=== PATIENT | female | born 1980 | race Caucasian/White ===

== ENCOUNTER 2016-09-13 08:21 | Emergency (ER) | payer MEDICAID, OTHER ==
[2016-09-13 08:21] VITALS: BMI 36.1
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
--- NOTE | 2016-09-13 10:11 | CT ---
CT chest without IV contrast Indication: Fall Technique: Contiguous axial images were obtained through the chest without intravenous contrast enhancement. Sagittal and coronal reconstructions were generated and reviewed. Radiation dose (DLP): 424.65 MGy-cm. Comparison: None available. Findings: Visualized portions of the inferior thyroid gland appear unremarkable. The mediastinal and hilar vascular structures appear within normal limits. The heart appears within normal limits of size. There is no focal consolidation, significant pleural effusion, or definite pneumothorax evident. No suspicious pulmonary nodules measuring greater than 5 mm. Small hiatal hernia. Limited visualization of the noncontrast upper abdomen appears grossly unremarkable. Mild loss of height of the T8 vertebral body, compression fracture. Impression: T8 compression fracture deformity with mild loss of vertebral body height. Recommend further evaluation with MRI thoracic spine.
[2016-09-13 12:31] VITALS: TEMP 98.9
--- NOTE | 2016-09-13 12:53 | MRI ---
PROCEDURE: MR THORACIC SPINE WITHOUT CONTRAST HISTORY: fall, compression fx of the T 8 COMPARISON: Comparison is made to the previous CT dated 09/13/2016 TECHNIQUE: Multiecho multiplanar sequences were performed through the thoracic spine without the use of intravenous contrast. FINDINGS: ALIGNMENT: Normal thoracic spinal alignment. Normal thoracic kyphosis. VERTEBRA: Again seen is mild compression deformity at the superior endplate of T8 vertebral body which demonstrate mild hypointense T1 and hyperintense T2 signal. No evidence of bony retropulsion. No evidence of other compression deformity in the thoracic spine. MARROW: Marrow signal unremarkable. PARASPINAL SOFT TISSUES: Unremarkable. CORD: Unremarkable thoracic cord. No volume loss, signal abnormality or syrinx. DISCS: No disc herniation, spinal canal stenosis, or neuroforaminal narrowing. OTHER FINDINGS: None. IMPRESSION: Mild compression deformity at the superior endplate of T8 again noted associated with mild hypointense T1 and slight hyperintense T2 signal. No evidence of spinal or neural foraminal narrowing. No evidence of other acute or subacute fracture.
[2016-09-13 14:37] VITALS: BP 131/80; PULSE 78; RESP 16
[2016-09-13 18:24] VITALS: O2SAT 99
== END 2016-09-13 14:58 | disposition home or self-care (01) ==
LOC: C.ER 08:21
DX: S22.069A Unspecified fracture of T7-T8 vertebra, initial encounter for closed fracture (principal); W00.1XXA Fall from stairs and steps due to ice and snow, initial encounter; Y92.59 Other trade areas as the place of occurrence of the external cause

== ENCOUNTER 2018-07-14 09:46 | Outpatient (CLI) | payer SELFPAY | END 2018-07-14 09:47 | disposition home or self-care (01) | LOC: C.USIC 09:46 ==

== ENCOUNTER 2018-07-20 21:33 | Emergency (ER) | payer SELFPAY ==
[2018-07-20 21:33] VITALS: BMI 30.5
[2018-07-20] MEDS ORDERED: Sodium Chloride 0.9% 1,000 ML IV ONE (21:48)
[2018-07-20 22:15] LABS: BASO # 0.1 K/uL (0.0-0.2); BASO % 0.7 % (0.0-2.0); EOS # 0.1 K/uL (0.0-0.7); EOS % 0.6 % (0.0-4.0); HEMOGLOBIN 13.1 g/dL (11.0-16.0); LYMPH % 29.8 % (20.0-40.0); MEAN CORPUSCULAR HEMOGLOBIN 29.2 pg (27.0-31.0); MEAN CORPUSCULAR HGB CONC 33.2 g/dL (33.0-37.0); MEAN PLATELET VOLUME 7.9 fL (7.2-11.7); MONO # 0.7 K/uL (0.0-0.8); MONO % 7.1 % (0.0-10.0); NEUT # 6.3 K/uL (1.8-7.0); NEUT % 61.8 % (50.0-75.0); NRBC % 0.1 % (0.0-2.0); RBC 4.49 Mil/uL (3.80-5.20); RED CELL DISTRIBUTION WIDTH 12.8 % (11.5-14.5); WHITE BLOOD COUNT 10.1 K/uL (4.8-10.8)
[2018-07-20 22:17] LABS: MEAN CELL VOLUME 87.9 fL (81.0-99.0)
[2018-07-20 22:31] LABS: ALB/GLOB RATIO 1.4 (1.0-2.1); ALBUMIN 4.5 g/dL (3.5-5.0); BLOOD UREA NITROGEN 11 mg/dL (7-17); CALCIUM 8.9 mg/dl (8.6-10.4); GFR NON-AFRICAN AMERICAN > 60
[2018-07-20 22:32] LABS: ALT/SGPT 22 U/L (9-52); AST/SGOT 28 U/L (14-36)
--- NOTE | 2018-07-20 23:58 | C.PDOC ---
History Of Present Illness 37 year old female presents to the ER with a complaint of vaginal bleeding described as spotting since this morning. Patient is , currently 10 weeks . Denies pelvic pain, nausea, vomiting, or dysuria. Patient's PIT LABORER is DR. Mccurdy. Time Seen by Provider: 07/20/18 21:41 Chief Complaint (Nursing): Female Genitourinary History Per: Patient History/Exam Limitations: no limitations Onset/Duration Of Symptoms: Hrs Current Symptoms Are (Timing): Still Present Quality Of Discomfort: Unable To Describe Associated Symptoms: denies: Nausea, Vomiting, Other (Pelvic pain. Dysuria.) Exacerbating Factors: None Alleviating Factors: None Recent travel outside of the [place]: No Abnormal Vaginal Bleeding: Yes Past Medical History Reviewed: Historical Data, Nursing Documentation, Vital Signs Vital Signs: Last Vital Signs Temp 98.7 F 07/20/18 21:36 Pulse 88 07/20/18 21:36 Resp 16 07/20/18 21:36 BP 147/86 07/20/18 21:36 Pulse Ox 97 07/20/18 21:36 - [facility] Procedures EXTRACTION OF POC, LOW CERVICAL, OPEN APPROACH (02/20/16) INJECT/INFUSE NEC (10/10/14) Family History: States: Unknown Family Hx - Social History Hx Tobacco Use: No Hx Alcohol Use: No Hx Substance Use: No - Immunization History Hx Tetanus Toxoid Vaccination: No Hx Influenza Vaccination: No Hx Pneumococcal Vaccination: No Review Of Systems Except As Marked, All Systems Reviewed And Found Negative. Genitourinary: Positive for: Vaginal Bleeding Physical Exam - Physical Exam Appears: Non-toxic, No Acute Distress Skin: Normal Color, Warm, Dry Head: Atraumatic, Normacephalic Eye(s): bilateral: Normal Inspection Oral Mucosa: Moist Neck: Normal, Supple Chest: Symmetrical, No Tenderness Cardiovascular: Rhythm Regular Respiratory: Normal Breath Sounds, No Rales, No Rhonchi, No Wheezing Gastrointestinal/Abdominal: Soft, No Tenderness Back: No CVA Tenderness Neurological/Psych: Oriented x3, Normal Speech ED Course And Treatment - Laboratory Results Result Diagrams: 07/20/18 22:11 07/20/18 22:11 Lab Results: Total Bilirubin 0.4 mg/dL (0.2-1.3) 07/20/18 22:11 AST 28 U/L (14-36) 07/20/18 22:11 ALT 22 U/L (9-52) 07/20/18 22:11 Alkaline Phosphatase 53 U/L (38-126) 07/20/18 22:11 Total Protein 7.8 g/dL (6.3-8.3) 07/20/18 22:11 Albumin 4.5 g/dL (3.5-5.0) 07/20/18 22:11 Globulin 3.3 gm/dL (2.2-3.9) 07/20/18 22:11 Albumin/Globulin Ratio 1.4 (1.0-2.1) 07/20/18 22:11 Urine HCG, Qual Positive (NEGATIVE) 07/20/18 22:11 Beta HCG, Quant 857801.00 mIU/ML 07/20/18 22:11 Urine HCG, Qual Positive (NEGATIVE) 07/20/18 22:11 O2 Sat by Pulse Oximetry: 97 (Room air) Pulse Ox Interpretation: Normal - CT Scan/US US Other Rad Studies (CT/US): Read By Radiologist, Radiology Report Reviewed CT/US Interpretation: EXAM: US Pelvis, Complete Transvaginal and Transabdominal. COMPARISON: None provided. CLINICAL HISTORY: Pelvic pain , . TECHNIQUE: Transvaginal and transabdominal pelvic ultrasound (complete) with image documentation. FINDINGS: ENDOMETRIUM: Normal thickness. UTERUS/CERVIX: Uterus measures 12.6 x 7.1 x 9.5 c-arm. Cervix measures 4.0 centimeters and appears closed. RIGHT OVARY: Right ovary measures 3.0 x 2.3 x 3.3 c-arm. Right ovary demonstrates normal waveforms. LEFT OVARY: Left ovary measures 2.6 x 1.8 x 1.6 c-arm. Left ovary demonstrates normal waveforms. FREE FLUID: No free fluid. MISCELLANEOUS: A gestational sac is seen. A pole is seen. Mean sac diameter is 4.3 c-arm compatible with an estimated ultrasound age of 9.5 weeks. [place] rump length measures 2.6 c-arm compatible with an es timated ultrasound age of 9.3 weeks. heart motion observed at 163 beats per minute. A yolk sac is present. IMPRESSION: 1. Single live intrauterine gestation of approximately 9.3 weeks. 2. Cervix measures 4.0 centimeters and appears closed. 3. Both ovaries demonstrate normal Doppler waveforms. 4. Additional and incidental findings as described above. Progress Note: Blood work, Urinalysis, and US ordered, results were negative. Disposition Counseled Patient/Family Regarding: Studies Performed, Diagnosis, Need For Followup - Disposition Referrals: Jimmy Fritz [Outside] Disposition: HOME/ ROUTINE Disposition Time: 23:56 Condition: STABLE Additional Instructions: FOLLOW UP WITH [facility] CLINIC WITHIN 1 WEEK RETURN TO EMERGENCY ROOM IF YOUR SYMPTOMS BECOME WORSE SEGUIR CON LA CLNICA DE OB / LOTUS NOTES DEVELOPER DENTRO DE 1 SEMANA VUELVA A LA CLARITA DE EMERGENCIA SI GILBERT SNTOMAS SE HACEN PEOR Instructions: Bleeding With (DC) Forms: [employer] (Amharic) Print Language: BELGIAN - Clinical Impression Clinical Impression: Bleeding in early - Scribe Statement The provider has reviewed the documentation as recorded by the Scribe Azeem Han All medical record entries made by the Scribe were at my direction and personally dictated by me. I have reviewed the chart and agree that the record accurately reflects my personal performance of the history, physical exam, medical decision making, and the department course for this patient. I have also personally directed, reviewed, and agree with the discharge instructions and disposition.
[2018-07-21 00:05] VITALS: BP 154/74; PULSE 74; RESP 17; TEMP 98.4
[2018-07-21 03:43] VITALS: O2SAT 97
--- NOTE | 2018-07-21 09:45 | US ---
Date of service: 07/20/2018 PROCEDURE: OB Pelvic Ultrasound Transabdominal scanning performed through a moderately distended bladder. Abdominal approach somewhat limiting in terms of assessing the ovaries. HISTORY: PELVIC PAIN, LMP: On this exam the LMP is listed as 05/22/2018-on the prior exam it was listed as 05/21/2018 COMPARISON: 07/14/2018 FINDINGS: UTERUS: Gestational sac: Mean sac diameter 4.27 cm corresponding to a 9 week 5 day gestation. Yolk sac present at 0.49 cm Embryonic pole tzzeadq-mwzzk-ehou length measurement 2.53 cm corresponding to 9 weeks 2 days. Heart rate: 163 bpm. age (Ultrasound estimated): 9 weeks 4 days +/-0 weeks 5 days Yeny-gestational hemorrhage: None. Date of delivery (Ultrasound estimated) : 02/18/2019 Uterus measures 12.6 x 7.1 x 9.5 cm. Normal anteverted appearance and normal size. CERVIX: Measures 4.0 cm. Long and closed. No cervical abnormality seen. RIGHT OVARY: Measures 3.0 x 2.3 x 3.3 cm. No mass lesion. Normal flow. LEFT OVARY: Measures 2.2 x 1.8 x 1.6 cm. No solid mass. Normal flow. FREE FLUID: None. OTHER FINDINGS: None. IMPRESSION: Single intrauterine gestation with cardiac activity whose menstrual age by ultrasound multiple biometric parameters corresponds to a 9 week 4 day +/-0 weeks 5 day gestation with an estimated date of delivery of 02/18/2019. This is concordant with the prior recent study of 07/14/2018 regarding expected interval change no perigestational hemorrhage seen.
== END 2018-07-21 00:05 | disposition home or self-care (01) ==
LOC: C.ER 21:33
DX: O20.9 Hemorrhage in early pregnancy, unspecified (principal); Z3A.09 9 weeks gestation of pregnancy
CPT/HCPCS: 76815; 80053; 84702; 84703; 85025; 86850; 86900; 99284; J7030

== ENCOUNTER 2018-10-11 17:13 | Emergency (ER) | payer MEDICAID, SELFPAY ==
[2018-10-11 17:13] VITALS: BMI 30.5
[2018-10-11 17:16] VITALS: BP 157/88; PULSE 115; TEMP 99.6
--- NOTE | 2018-10-11 17:53 | C.PDOC ---
History Of Present Illness 37 y/o female comes in to ED complaining of pressure to her sinuses and mild sore throat, with stuffy nose over past 2 days. Patient denies fever, neck stiffness, headache, abdominal pain, vaginal bleeding or discharge. Patient is currently with OB follow up. Chief Complaint (Nursing): Shortness Of Breath History Per: Patient History/Exam Limitations: no limitations Onset/Duration Of Symptoms: Days Current Symptoms Are (Timing): Still Present Past Medical History Reviewed: Historical Data, Nursing Documentation, Vital Signs Vital Signs: Last Vital Signs Temp 99.6 F 10/11/18 17:15 Pulse 115 H 10/11/18 17:15 Resp 20 10/11/18 17:15 BP 157/88 H 10/11/18 17:15 Pulse Ox 100 10/11/18 17:15 - [facility] Procedures EXTRACTION OF POC, LOW CERVICAL, OPEN APPROACH (02/20/16) INJECT/INFUSE NEC (10/10/14) Family History: States: No Known Family Hx - Social History Hx Tobacco Use: No Hx Alcohol Use: No Hx Substance Use: No - Immunization History Hx Tetanus Toxoid Vaccination: No Hx Influenza Vaccination: No Hx Pneumococcal Vaccination: No Review Of Systems Except As Marked, All Systems Reviewed And Found Negative. Constitutional: Negative for: Fever ENT: Positive for: Throat Pain (mild sore throat), Other (Sinus pressure) Gastrointestinal: Negative for: Abdominal Pain Genitourinary: Negative for: Vaginal Discharge, Vaginal Bleeding Musculoskeletal: Negative for: Neck Pain Neurological: Negative for: Headache Physical Exam - Physical Exam Appears: Non-toxic, No Acute Distress Skin: Warm, Dry Head: Atraumatic, Other (frontal maxillary sinus tenderness) Eye(s): bilateral: Normal Inspection Oral Mucosa: Moist Throat: Normal Neck: Supple Cardiovascular: Rhythm Regular, No Murmur Respiratory: Normal Breath Sounds, No Rales, No Rhonchi, No Wheezing Gastrointestinal/Abdominal: Soft, No Tenderness Extremity: Bilateral: Atraumatic, Normal Color And Temperature, Normal ROM Neurological/Psych: Oriented x3, Normal Speech ED Course And Treatment O2 Sat by Pulse Oximetry: 100 (RA) Pulse Ox Interpretation: Normal Disposition - Disposition Referrals: [facility] Girish Corbett, [Non-Staff] - Disposition: HOME/ ROUTINE Disposition Time: 18:00 Condition: GOOD Additional Instructions: HALEY KARIMI, thank you for letting us take care of you today. The emergency medical care you received today was directed at your acute symptoms. If you were prescribed any medication, please fill it and take as directed. It may take several days for your symptoms to resolve. Return to the Emergency De partment if your symptoms worsen, do not improve, or if you have any other problems. Please contact your doctor or call one of the physicians/clinics you have been referred to that are listed on the Patient Visit Information form that is included in your discharge packet. Bring any paperwork you were given at discharge with you along with any medications you are taking to your follow up visit. Our treatment cannot replace ongoing medical care by a primary care provider outside of the emergency department. Thank you for allowing the [facility] team to be part of your care today. Follow up with your WATCH REPAIRER APPRENTICE doctor this week for re-evaluation and further management. Prescriptions: Amoxicillin/Clavulanate [Augmentin 875 MG-125 MG] 1 tab PO BID #14 tab Cetirizine HCl [Zyrtec] 10 mg PO DAILY #30 capsule Instructions: Sinusitis, Adult (DC) Forms: [employer] (Telugu) - Clinical Impression Clinical Impression: Sinusitis - Scribe Statement The provider has reviewed the documentation as recorded by the Shawn Waggoner Provider Attestation: All medical record entries made by the Shawn were at my direction and personally dictated by me. I have reviewed the chart and agree that the record accurately reflects my personal performance of the history, physical exam, medical decision making, and the department course for this patient. I have also personally directed, reviewed, and agree with the discharge instructions and disposition.
[2018-10-11 18:13] VITALS: RESP 18
[2018-10-11 21:44] VITALS: O2SAT 100
== END 2018-10-11 18:14 | disposition home or self-care (01) ==
LOC: C.ER 17:13
DX: J32.9 Chronic sinusitis, unspecified (principal)